=== PATIENT | female | born 1930 | race Caucasian/White ===

== ENCOUNTER 2017-03-03 07:26 | Emergency (ER) | payer OTHER, BC ==
[~2017-03-03] VITALS: Ht 165.1 cm; Wt 50.0 kg
[~2017-03-03 07:26] MED LIST: AMLODIPINE-BEN1 EAC2 PO; ASPIR-TRIN325 M1 PO; ATENOLOL25 MG PO; ATIVAN1 MG PO; ATORVASTATIN CA40 MG PO; AZOR 5/20 MG1 TABLET PO; B-121000 MC2 PO; BENAZEPRIL HCL20 MG PO; BISACODYL5 MG PO; BUPROPION XL150 MG PO; CENTRUM SILVER1 EAC3 PO; CENTRUM SILVER1 EAC4 PO; CERTAVITE SR W1 EACH PO; CIPRO500 MG PO; COUMADIN1 MG PO; DITROPAN5 MG PO; ECOTRIN325 MG PO; FOLBIC RF TABL1 EACH PO; GLUCOPHAGE500 MG PO; HYDROCHLOROTH12.5 M3 PO; HYDROCODON-ACE1 EAC7 PO; LIDOCAINE700 MG TD; LIPITOR20 MG PO; LIPITOR40 MG PO; LORAZEPAM1 MG PO; LORCET 5-325 M1 EACH PO; LOTENSIN20 MG PO; LOVENOX40 MG/0.4 SC; METFORMIN HCL500 MG PO; PAROXETINE HCL20 MG PO; PAXIL20 MG PO; PERCOCET 5/31 TABLET PO; SERTRALINE HCL50 MG PO; SODIUM CHLORIDE1 G1 PO; TETRACYCLINE H250 MG PO; Vicodin,Lortab 5/500 PO
[2017-03-03 08:19] LABS: EOSINOPHIL (%) 0 % (0-5); HEMATOCRIT 38.1 % (36.0-46.0); IMMATURE GRANULOCYTE (%) 0.1 % (0.0-0.7); INSTRUMENT ABS NEUTROPHIL CT 7.3 K/uL; LYMPHOCYTE COUNT 1.1 K/uL (1.0-2.8); MCH 32.1 PG (29.0-34.0); MCHC 32.8 G/DL (30.0-36.0); MCV 97.9 FL (83-99); MEAN PLAT.VOLUME 10.8 uM^3 (9.5-12.4); MONOCYTE (%) 5.1 % (3-12); MONOCYTE COUNT 0.5 K/uL (0-0.8); NEUTROPHIL (%) 81.7 % (45-76); NEUTROPHIL COUNT 7.3 K/uL (1.8-6.4); PLATELET COUNT 229 K/uL (156-360); RBC DIS.WIDTH-CV 12.9 % (11.8-14.6); RED BLOOD COUNT 3.89 M/uL (3.80-5.20); WHITE BLOOD COUNT 8.9 K/uL (4.1-10.2)
[2017-03-03 08:25] LABS: INTER. NORMALIZED RATIO 1.1; PROTHROMBIN TIME 11.6 SEC (10.2-12.9)
[2017-03-03 08:27] LABS: CHLORIDE 104 mEq/L (99-109); POTASSIUM 4.1 mEq/L (3.7-5.4); SODIUM 141 mEq/L (136-147)
[2017-03-03 08:30] LABS: GLUCOSE 102 mg/dL (70-99)
[2017-03-03 08:31] LABS: ANION GAP 11 MEQ/L (2-14); TOTAL BILIRUBIN 0.6 mg/dL (0.0-1.0)
[2017-03-03 08:33] LABS: ALKALINE PHOSPHATASE 113 IU/L (3-129); GFR ESTIMATE (CALCULATED) > 59 mL/min/
[2017-03-03 08:34] LABS: UREA NITROGEN (BUN) 19 mg/dL (9-23)
[2017-03-03 08:35] LABS: DIRECT BILIRUBIN 0.3 mg/dL (0.0-0.3)
[2017-03-03 08:57] VITALS: BP 196/80
== END 2017-03-03 08:59 | disposition home or self-care (01) ==
LOC: EME → EDBD 07:26 → EME 07:26
PROVIDERS: Physician Assistant
DX: S01.512A Laceration without foreign body of oral cavity, initial encounter (principal); W45.8XXA Other foreign body or object entering through skin, initial encounter; F03.90 Unspecified dementia, unspecified severity, without behavioral disturbance, psychotic disturbance, mood disturbance, and anxiety; I10 Essential (primary) hypertension; E78.5 Hyperlipidemia, unspecified; Z79.82 Long term (current) use of aspirin
CPT/HCPCS: 80048; 80076; 85025; 85610; 99281; 99284

== ENCOUNTER 2017-12-09 11:03 | Inpatient (IN) | payer OTHER, BC ==
[~2017-12-09] VITALS: Ht 160 cm; Wt 56.0 kg
[2017-12-09 12:15] LABS: HEMATOCRIT 34.7 % (36.0-46.0); HEMOGLOBIN 11.9 G/DL (11.9-15.5); MCH 32.9 PG (29.0-34.0); MCHC 34.3 G/DL (30.0-36.0); MCV 95.9 FL (83-99); PLATELET COUNT 250 K/uL (156-360); RBC DIS.WIDTH-SD 45.4 % (39-53); RED BLOOD COUNT 3.62 M/uL (3.80-5.20); WHITE BLOOD COUNT 14.1 K/uL (4.1-10.2)
[2017-12-09 12:24] LABS: ALBUMIN 3.4 g/dL (3.2-4.8); CHLORIDE 101 mEq/L (99-109); SODIUM 135 mEq/L (136-147)
[2017-12-09 12:26] LABS: GLUCOSE 129 mg/dL (70-99)
[2017-12-09 12:27] LABS: TOTAL PROTEIN 6.1 g/dL (6.4-8.3)
[2017-12-09 12:28] LABS: TOTAL BILIRUBIN 0.5 mg/dL (0.0-1.0)
[2017-12-09 12:30] LABS: ALKALINE PHOSPHATASE 107 IU/L (3-129); GFR ESTIMATE (CALCULATED) 55 mL/min/
[2017-12-09 12:31] LABS: UREA NITROGEN (BUN) 33 mg/dL (9-23)
[2017-12-09 12:32] LABS: AST (GOT) 29 IU/L (2-34)
[2017-12-09 12:33] LABS: ALT (GPT) 27 IU/L (3-49)
[2017-12-09 14:04] LABS: INTER. NORMALIZED RATIO 1.1
[2017-12-09 14:07] LABS: PTT 29.1 SEC (25-37)
[2017-12-09] MEDS ORDERED: PAXIL10 MG PO (15:23)
[2017-12-09] MEDS ORDERED: B-12500 MC1 SL (15:24)
[2017-12-09] MEDS ORDERED: CEFTIN500 MG PO (15:25)
[2017-12-09] MEDS ORDERED: GLUCOPHAGE500 MG PO (15:26)
[2017-12-09] MEDS ORDERED: MICROZIDE12.5 M1 PO (15:26)
[2017-12-09] MEDS ORDERED: ZITHROMAX500 MG PO (15:26)
[2017-12-09] MEDS ORDERED: TYLENOL EXTRA500 MG PO (15:27)
[2017-12-09 19:27] VITALS: BP 158/88
[2017-12-10] VITALS (7 sets, daily range): BP systolic 106–172; BP diastolic 58–98
[2017-12-10 06:17] LABS: HEMATOCRIT 35.4 % (36.0-46.0); HEMOGLOBIN 11.8 G/DL (11.9-15.5); MCH 31.8 PG (29.0-34.0); MCHC 33.3 G/DL (30.0-36.0); MCV 95.4 FL (83-99); RBC DIS.WIDTH-CV 13.2 % (11.8-14.6); RBC DIS.WIDTH-SD 45.8 % (39-53); RED BLOOD COUNT 3.71 M/uL (3.80-5.20); WHITE BLOOD COUNT 13.8 K/uL (4.1-10.2)
[2017-12-10 06:40] LABS: CHLORIDE 100 MEQ/L (99-109); CREATININE 0.9 MG/DL (0.6-1.3); GFR ESTIMATE (CALCULATED) > 59 mL/min/; GLUCOSE 119 mg/dL (70-99); SODIUM 137 MEQ/L (136-147); UREA NITROGEN (BUN) 28 mg/dL (9-23)
[2017-12-10 06:46] LABS: PLATELET COUNT 464 K/uL (156-360)
[2017-12-11 03:44] VITALS: BP 110/61
[2017-12-11 07:36] VITALS: BP 180/89
[2017-12-11 08:37] LABS: HEMATOCRIT 34.4 % (36.0-46.0); HEMOGLOBIN 11.6 G/DL (11.9-15.5); MCH 32.5 PG (29.0-34.0); MCHC 33.7 G/DL (30.0-36.0); MCV 96.4 FL (83-99); PLATELET COUNT 421 K/uL (156-360); RBC DIS.WIDTH-CV 13.2 % (11.8-14.6); RBC DIS.WIDTH-SD 45.9 % (39-53); RED BLOOD COUNT 3.57 M/uL (3.80-5.20); WHITE BLOOD COUNT 11.6 K/uL (4.1-10.2)
[2017-12-11 08:49] LABS: CHLORIDE 99 MEQ/L (99-109); GFR ESTIMATE (CALCULATED) 55 mL/min/; GLUCOSE 130 mg/dL (70-99); POTASSIUM 3.5 MEQ/L (3.7-5.4); SODIUM 138 MEQ/L (136-147); UREA NITROGEN (BUN) 23 mg/dL (9-23)
[2017-12-11 12:49] VITALS: BP 121/78
[2017-12-11 15:57] VITALS: BP 145/90
[2017-12-11 19:17] VITALS: BP 151/94
[2017-12-11 23:17] VITALS: BP 142/80
[2017-12-12 03:43] VITALS: BP 158/98
[2017-12-12 06:16] LABS: BASOPHIL (%) 0.5 % (0-1); BASOPHIL COUNT 0.1 K/uL (0-0.1); EOSINOPHIL (%) 0.1 % (0-5); HEMATOCRIT 34.3 % (36.0-46.0); HEMOGLOBIN 11.4 G/DL (11.9-15.5); IMMATURE GRANULOCYTE (%) 0.4 % (0.0-0.7); LYMPHOCYTE (%) 6.7 % (15-42); LYMPHOCYTE COUNT 0.9 K/uL (1.0-2.8); MCH 32.1 PG (29.0-34.0); MCHC 33.2 G/DL (30.0-36.0); MCV 96.6 FL (83-99); MONOCYTE COUNT 1.1 K/uL (0-0.8); NEUTROPHIL (%) 84.3 % (45-76); NEUTROPHIL COUNT 11.1 K/uL (1.8-6.4); PLATELET COUNT 427 K/uL (156-360); RBC DIS.WIDTH-CV 13.4 % (11.8-14.6); RBC DIS.WIDTH-SD 46.7 % (39-53); RED BLOOD COUNT 3.55 M/uL (3.80-5.20); WHITE BLOOD COUNT 13.2 K/uL (4.1-10.2)
[2017-12-12 06:53] LABS: CHLORIDE 99 MEQ/L (99-109); CREATININE 0.9 MG/DL (0.6-1.3); GFR ESTIMATE (CALCULATED) > 59 mL/min/; GLUCOSE 123 mg/dL (70-99); SODIUM 134 MEQ/L (136-147); UREA NITROGEN (BUN) 18 mg/dL (9-23)
[2017-12-12 06:54] LABS: POTASSIUM 4.3 MEQ/L (3.7-5.4)
[2017-12-12 07:25] VITALS: BP 120/90
[2017-12-12 11:11] VITALS: BP 139/87
[2017-12-12] MEDS ORDERED: ELIQUIS5 MG PO (11:25)
[2017-12-12] MEDS ORDERED: ELIQUIS2.5 MG PO (11:26)
[2017-12-12] MEDS ORDERED: IMDUR30 MG PO (11:27)
[2017-12-12] MEDS ORDERED: FUROSEMIDE40 MG PO (11:27)
[2017-12-12] MEDS ORDERED: CARVEDILOL3.125 MG PO (11:27)
[2017-12-12] MEDS ORDERED: KLOR-CON20 MEQ PO (11:28)
[2017-12-12] MEDS ORDERED: AUGMENTIN875 MG PO (11:29)
[2017-12-12 15:40] VITALS: BP 153/91
[2017-12-12 19:52] VITALS: BP 142/78
[2017-12-13] VITALS (7 sets, daily range): BP systolic 134–162; BP diastolic 71–98
[2017-12-13 05:55] LABS: HEMATOCRIT 35.7 % (36.0-46.0); HEMOGLOBIN 11.8 G/DL (11.9-15.5); MCH 31.8 PG (29.0-34.0); MCHC 33.1 G/DL (30.0-36.0); MCV 96.2 FL (83-99); PLATELET COUNT 450 K/uL (156-360); RBC DIS.WIDTH-CV 13.3 % (11.8-14.6); RBC DIS.WIDTH-SD 46.3 % (39-53); RED BLOOD COUNT 3.71 M/uL (3.80-5.20); WHITE BLOOD COUNT 15.6 K/uL (4.1-10.2)
[2017-12-13 13:19] LABS: CHLORIDE 97 MEQ/L (99-109); CREATININE 0.8 MG/DL (0.6-1.3); GFR ESTIMATE (CALCULATED) > 59 mL/min/; GLUCOSE 174 mg/dL (70-99); POTASSIUM 4.4 MEQ/L (3.7-5.4); SODIUM 134 MEQ/L (136-147); UREA NITROGEN (BUN) 17 mg/dL (9-23)
[2017-12-14 03:10] VITALS: BP 132/68
[2017-12-14 07:57] VITALS: BP 160/92
[2017-12-14 12:05] VITALS: BP 125/77
[2017-12-14] MEDS ORDERED: ATIVAN INTE2 MG/1 ML PO (14:13)
[2017-12-14] MEDS ORDERED: MORPHINE CON20 MG/M1 PO (14:13)
[2017-12-14] MEDS ORDERED: ATROPINE 0.01%-10 ML OP (14:15)
[2017-12-14 16:38] VITALS: BP 157/91
[2017-12-14 20:39] VITALS: BP 164/90
[2017-12-15 00:04] VITALS: BP 133/76
[2017-12-15 06:31] LABS: HEMATOCRIT 35.6 % (36.0-46.0); HEMOGLOBIN 11.7 G/DL (11.9-15.5); MCH 31.3 PG (29.0-34.0); MCHC 32.9 G/DL (30.0-36.0); MCV 95.2 FL (83-99); PLATELET COUNT 428 K/uL (156-360); RBC DIS.WIDTH-CV 13.5 % (11.8-14.6); RBC DIS.WIDTH-SD 46.9 % (39-53); RED BLOOD COUNT 3.74 M/uL (3.80-5.20)
[2017-12-15 07:13] VITALS: BP 182/89
== END 2017-12-15 11:15 | disposition hospice, home (50) | DRG 291 ==
LOC: EME 11:03 → 5SOUTH 15:53 → EDOF 15:53 → ENRESERV 15:54 → 5SOUTH 19:27
PROVIDERS: Emergency Medicine; Hospitalist; Internal Medicine; Nurse Practitioner Family
DX: I11.0 Hypertensive heart disease with heart failure (principal); J18.9 Pneumonia, unspecified organism; I48.1 Persistent atrial fibrillation; I82.441 Acute embolism and thrombosis of right tibial vein; Z51.5 Encounter for palliative care; Z66 Do not resuscitate; I50.33 Acute on chronic diastolic (congestive) heart failure; R09.02 Hypoxemia; I82.403 Acute embolism and thrombosis of unspecified deep veins of lower extremity, bilateral; E11.9 Type 2 diabetes mellitus without complications; F03.90 Unspecified dementia, unspecified severity, without behavioral disturbance, psychotic disturbance, mood disturbance, and anxiety; E78.5 Hyperlipidemia, unspecified; F41.9 Anxiety disorder, unspecified; K29.70 Gastritis, unspecified, without bleeding; K59.00 Constipation, unspecified; I08.0 Rheumatic disorders of both mitral and aortic valves; R13.10 Dysphagia, unspecified; I73.9 Peripheral vascular disease, unspecified; M81.0 Age-related osteoporosis without current pathological fracture; Z79.84 Long term (current) use of oral hypoglycemic drugs; Z74.01 Bed confinement status; Z90.710 Acquired absence of both cervix and uterus; Z79.899 Other long term (current) drug therapy
CPT/HCPCS: 71046; 71275; 74177; 80048; 80053; 82948; 83605; 83880; 84145 90; 85025; 85027; 85610; 85730; 87040; 87449; 92610 GN; 93005; 93306; 93925; 93971; 97530 GP; 99281; 99285; J0456; J0696; J1815; J1940; J7030